=== PATIENT | male | born 1990 | race Caucasian/White ===

== ENCOUNTER 2016-04-29 02:51 | Emergency (ER) | payer SELFPAY ==
[2016-04-29 02:53] VITALS: BP 178/94; PULSE 103; RESP 20; O2SAT 99
--- NOTE | 2016-04-29 04:02 | PD ---
HPI Chief Complaint: Anxiety Time Seen by Provider: 03:59 Travel History International Travel<30 days: No Contact w/Intl Traveler<30days: No Traveled to known affect area: No History of Present Illness HPI Patient comes in requesting something for his anxiety. Patient states he has a history of anxiety secondary to alcohol use. Patient states that he drank a total of 8-16 ounce beers in the last 24 hours as well as taking ecstasy around midnight today and smoking marijuana. Patient did take Benadryl 50 mg prior to coming to the emergency department with no improvement of his symptoms. Patient states this feels similar to previous anxiety attacks and typically happens when he drinks. Denies any chest pain, shortness of breath, abdominal pain, nausea, vomiting, or known trauma. PFSH Past Medical History Anxiety: Yes Depression: Yes Cancer: No Cardiovascular Problems: No Diabetes: No Headaches: No Psychiatric: Yes (See below) Seizures: Yes Past Surgical History Surgical History: No Previous Surgery Social History Alcohol Use: Yes (was alcoholic; sober 1 year) Tobacco Use: No Substance Use: Yes (marijuana) Allergies-Medications (Allergen,Severity, Reaction): Coded Allergies: No Known Allergies (Unverified , 04/29/16) Reported Meds & Prescriptions Reported Meds & Active Scripts Active No Active Prescriptions or Reported Medications Review of Systems Except as stated in HPI: all other systems reviewed are Neg Physical Exam Narrative GENERAL: Well-developed, well nourished, in no acute distress, and non-ill appearing. SKIN: Warm and dry. HEAD: Atraumatic. Normocephalic. EYES: Pupils equal and round. EOMI. No scleral icterus. No injection or drainage. ENT: No nasal bleeding or discharge. Mucous membranes pink and moist. NECK: Trachea midline. Supple. No nuclear rigidity. CARDIOVASCULAR: Regular rate and rhythm. No murmur appreciated. RESPIRATORY: No accessory muscle use. No respiratory distress. Clear to auscultation. Breath sounds equal bilaterally. MUSCULOSKELETAL: No obvious deformities. No clubbing. No cyanosis. No edema. Full range of motion. NEUROLOGICAL: Awake and alert. No obvious cranial nerve deficits. Motor grossly within normal limits. Normal speech. PSYCHIATRIC: Appropriate mood and affect; insight and judgment normal. Data Data Orders Lorazepam Inj (Ativan Inj) (04/29/16 04:15) [facility] Medical Decision Making Medical Screen Exam Complete: Yes Emergency Medical Condition: No Differential Diagnosis Anxiety, panic attack, substance abuse, alcohol intoxication, other Narrative Course Patient in no obvious distress upon re-evaluation. Reports he is feeling better and wanting to go home. Friends/family was at bedside reports that they' re going take him back to detox. Any questions/concerns in reference to patient diagnosis/condition discussed and clarified prior to patient's discharge. Reinforced sheer importance of close follow up with patient's primary physician or primary care clinic and/or [facility]. Instructed patient to return to ED immediately, if symptoms return/worsen. Pt showed understanding of above instructions. Further instructions and recommendations were detailed in discharge paperwork. Pt ambulated without difficulty out of ED at discharge. Diagnosis Primary Impression: Substance-induced anxiety disorder Referrals: [facility] Patient Instructions: Alcohol Use Disorder (ED), General Instructions, Polysubstance Abuse (ED) Additional Instructions: Follow-up with your primary care physician and/or [facility] one to 2 days for reevaluation. Stop drinking and taking drugs. Return to the emergency department if symptoms get worse. Scripts No Active Prescriptions or Reported Meds Disposition: 01 DISCHARGE HOME Condition: Stable Valentín Burns Apr 29, 2016 04:02
[2016-04-29] MEDS ORDERED: LORazepam 2 MG/ML VIAL IM ONE (04:15)
== END 2016-04-29 05:48 | disposition home or self-care (01) ==
LOC: NEPA 02:51
DX: F19.980 Other psychoactive substance use, unspecified with psychoactive substance-induced anxiety disorder (principal)
CPT/HCPCS: 96372; 99283; J2060

== ENCOUNTER 2016-10-11 04:35 | Emergency (ER) | payer SELFPAY ==
[~2016-10-11] VITALS: Ht 175.3 cm; Wt 113.5 kg
[2016-10-11 04:38] VITALS: BP 170/110; PULSE 110; RESP 16; TEMP 98.1; O2SAT 100
[2016-10-11] MEDS ORDERED: LORazepam 2 MG/ML VIAL IV ONE (05:00)
[2016-10-11] MEDS ORDERED: SODIUM CHLOR 0.9% 1000 ML INJ 1,000 ML IV ONE ×2 (05:00)
--- NOTE | 2016-10-11 05:03 | PD ---
HPI Chief Complaint: Medical Clearance Time Seen by Provider: 04:52 Travel History International Travel<30 days: No Contact w/Intl Traveler<30days: No Traveled to known affect area: No History of Present Illness HPI 26-year-old male arrives requesting detox from alcohol. He reports anxiety and drinking about 12-18 large cans of high alcohol content beer daily, as he did today. He would like to quit drinking etoh. He denies HI/SI. He denies drug abuse. Severity moderate. Timing constant.He denies any history of DTs or alcohol withdrawal seizure. PFSH Past Medical History Anxiety: Yes Depression: Yes Cancer: No Cardiovascular Problems: No Diabetes: No Headaches: No Psychiatric: Yes (See below) Seizures: Yes Past Surgical History Surgical History: No Previous Surgery Social History Alcohol Use: Yes (was alcoholic; sober 1 year) Tobacco Use: No Substance Use: Yes (marijuana) Allergies-Medications (Allergen,Severity, Reaction): Coded Allergies: No Known Allergies (Unverified , 04/29/16) Reported Meds & Prescriptions Reported Meds & Active Scripts Active No Active Prescriptions or Reported Medications Review of Systems Except as stated in HPI: all other systems reviewed are Neg Physical Exam Narrative GENERAL: 26 yo M, WNWD, anxious, cooperative, etoh on breath SKIN: Warm and dry. HEAD: Atraumatic. Normocephalic. EYES: Pupils equal and round. No scleral icterus. No injection or drainage. ENT: No nasal bleeding or discharge. Mucous membranes pink and moist. NECK: Trachea midline. No JVD. CARDIOVASCULAR: Regular rhythm. Tachycardia. RESPIRATORY: No accessory muscle use. Clear to auscultation. Breath sounds equal bilaterally. GASTROINTESTINAL: Abdomen soft, non-tender, nondistended. Hepatic and splenic margins not palpable. MUSCULOSKELETAL: Extremities without clubbing, cyanosis, or edema. No obvious deformities. NEUROLOGICAL: Awake and alert. No obvious cranial nerve deficits. Motor grossly within normal limits. Five out of 5 muscle strength in the arms and legs. Normal speech. PSYCHIATRIC: Appropriate mood and affect; insight and judgment normal. Data Data Last Documented VS Vital Signs Date Time Temp Pulse Resp B/P Pulse Ox O2 Delivery O2 Flow Rate FiO2 10/11/16 04:38 98.1 110 16 170/110 100 Room Air VS reviewed Orders Complete Blood Count With Diff (10/11/16 04:55) Comprehensive Metabolic Panel (10/11/16 04:55) Iv Access Insert/Monitor (10/11/16 04:55) Ecg Monitoring (10/11/16 04:55) Psych Screen (10/11/16 04:55) Lorazepam Inj (Ativan Inj) (10/11/16 05:00) Alcohol (Ethanol) (10/11/16 04:55) Salicylates (Aspirin) (10/11/16 04:55) Tylenol (Acetaminophen) (10/11/16 04:55) Sodium Chlor 0.9% 1000 Ml Inj (Ns 1000 M (10/11/16 05:00) Sodium Chlor 0.9% 1000 Ml Inj (Ns 1000 M (10/11/16 05:00) Lorazepam Inj (Ativan Inj) (10/11/16 05:45) Labs Laboratory Tests Test 10/11/16 05:00 White Blood Count 8.5 TH/MM3 Red Blood Count 5.39 MIL/MM3 Hemoglobin 16.5 GM/DL Hematocrit 48.4 % Mean Corpuscular Volume 89.7 FL Mean Corpuscular Hemoglobin 30.6 PG Mean Corpuscular Hemoglobin 34.1 % Concent Red Cell Distribution Width 14.2 % Platelet Count 138 TH/MM3 Mean Platelet Volume 9.0 FL Neutrophils (%) (Auto) 54.2 % Lymphocytes (%) (Auto) 36.8 % Monocytes (%) (Auto) 7.2 % Eosinophils (%) (Auto) 1.6 % Basophils (%) (Auto) 0.2 % Neutrophils # (Auto) 4.6 TH/MM3 Lymphocytes # (Auto) 3.1 TH/MM3 Monocytes # (Auto) 0.6 TH/MM3 Eosinophils # (Auto) 0.1 TH/MM3 Basophils # (Auto) 0.0 TH/MM3 CBC Comment DIFF FINAL Differential Comment Sodium Level 140 MEQ/L Potassium Level 3.6 MEQ/L Chloride Level 104 MEQ/L Carbon Dioxide Level 27.6 MEQ/L Anion Gap 8 MEQ/L Blood Urea Nitrogen 8 MG/DL Creatinine 0.80 MG/DL Estimat Glomerular Filtration 118 ML/MIN Rate Random Glucose 94 MG/DL Calcium Level 8.8 MG/DL Total Bilirubin 0.4 MG/DL Aspartate Amino Transf 39 U/L (AST/SGOT) Alanine Aminotransferase 53 U/L (ALT/SGPT) Alkaline Phosphatase 75 U/L Total Protein 8.0 GM/DL Albumin 3.9 GM/DL Salicylates Level LESS THAN 1.7 MG/DL Acetaminophen Level LESS THAN 2.0 MCG/ML Ethyl Alcohol Level 87 MG/DL MDM Medical Decision Making Medical Screen Exam Complete: Yes Emergency Medical Condition: Yes Medical Record Reviewed: Yes Differential Diagnosis Alcoholism, alcohol withdrawal, delirium tremens, electron imbalance, anemia, polysubstance abuse Narrative Course CBC & BMP Diagram 10/11/16 05:00 LFTs normal EtOH 87 APAP < 2.0 Salicylates < 1.7 2L NS 2mg IV ativan. Reassessment at 615AM HR decreased to approximately 95- 105. No tremor. Reports feeling much better. [facility] follow up instructions provided at bedside. Diagnosis Primary Impression: Alcoholism Referrals: [facility] 2 days Additional Instructions: You have a choice when it comes to health care, and we are glad that you chose [facility]. Hopefully, we have met your expectations on today's visit. You are welcome to return to [facility] at any time, as we are committed to meeting the health care needs of our community. Med/Other Pt SpecificInfo: No Change to Meds Scripts No Active Prescriptions or Reported Meds Disposition: DISCHARGE HOME Condition: Dimitris Robins MD Oct 11, 2016 05:03 Additional Instructions: You have a choice when it comes to health care, and we are glad that you chose [facility]. Hopefully, we have met your expectations on today's visit. You are welcome to return to [facility] at any time, as we are committed to meeting the health care needs of our community. Med/Other Pt SpecificInfo: No Change to Meds Scripts No Active Prescriptions or Reported Meds Disposition: DISCHARGE HOME Condition: Dimitris Robins MD Oct 11, 2016 05:03
[2016-10-11 05:14] LABS: AUTOMATED NEUTROPHIL # 4.6 TH/MM3 (1.8-7.7); BASOPHIL % 0.2 % (0.0-2.0); EOSINOPHIL # 0.1 TH/MM3 (0-0.4); EOSINOPHIL % 1.6 % (0.0-4.0); HEMATOCRIT 48.4 % (39.0-51.0); HEMO FLAGS DIFF FINAL; LYMPH % 36.8 % (9.0-44.0); LYMPHOCYTE # 3.1 TH/MM3 (1.0-4.8); MEAN CELL VOLUME 89.7 FL (80.0-100.0); MEAN CORPUSCULAR HEMOGLOBIN 30.6 PG (27.0-34.0); MEAN CORPUSCULAR HGB CONC 34.1 % (32.0-36.0); MONO % 7.2 % (0.0-8.0); NEUT % 54.2 % (16.0-70.0); PLATELET COUNT 138 TH/MM3 (150-450); RED BLOOD COUNT 5.39 MIL/MM3 (4.50-5.90); RED CELL DISTRIBUTION WIDTH 14.2 % (11.6-17.2); WHITE BLOOD COUNT 8.5 TH/MM3 (4.0-11.0)
[2016-10-11 05:43] LABS: ANION GAP 8 MEQ/L (5-15)
[2016-10-11] MEDS ORDERED: LORazepam 2 MG/ML VIAL IV PUSH ONE (05:45)
[2016-10-11 05:48] LABS: ALKALINE PHOSPHATASE 75 U/L (45-117); ALT (GPT) 53 U/L (12-78); AST (GOT) 39 U/L (15-37); BICARBONATE 27.6 MEQ/L (21.0-32.0); BLOOD UREA NITROGEN 8 MG/DL (7-18); CHLORIDE 104 MEQ/L (98-107); GLOMERULAR FILTRATION RATE 118 ML/MIN (>89); POTASSIUM 3.6 MEQ/L (3.5-5.1); SODIUM (NA) 140 MEQ/L (136-145); TOTAL BILIRUBIN ADULT 0.4 MG/DL (0.2-1.0)
[2016-10-11 05:50] LABS: ACETAMINOPHEN LESS THAN 2.0 MCG/ML (10.0-30.0)
== END 2016-10-11 06:42 | disposition home or self-care (01) ==
LOC: NEPC 04:35
DX: F10.20 Alcohol dependence, uncomplicated (principal)
CPT/HCPCS: 80053; 80307; 85025; 96361; 96374; 96376; 99284; J2060; J7030

== ENCOUNTER 2016-12-15 02:40 | Emergency (ER) | payer SELFPAY ==
[~2016-12-15] VITALS: Ht 175.3 cm; Wt 115.0 kg
[2016-12-15 02:42] VITALS: BP 146/91; PULSE 92; RESP 22; TEMP 98; O2SAT 100
--- NOTE | 2016-12-15 02:50 | PD ---
HPI Chief Complaint: Anxiety Time Seen by Provider: 02:50 Travel History International Travel<30 days: No Contact w/Intl Traveler<30days: No Traveled to known affect area: No History of Present Illness HPI 26-year-old male came to the emergency room with history of anxiety. Patient says he does have history of anxiety and panic attacks. He was sleeping today when he woke up and recognized his panic attack and came to the emergency room. He says he has been making some poor lifestyle choices including drinking a lot of alcohol. He says he drinks about 6-7 cans of 16 ounce beer each 8% alcohol daily and has been drinking it for 4-5 months. However he did not drink any alcohol in past 2 days. Vital signs are stable. He is awake and alert and answering questions appropriately. He looks visibly anxious. Patient denies any history of suicidal ideations or auditory hallucinations. [facility] Past Medical History Narrative Medical List of his past medical, surgical, social and family history is reviewed from the nursing note. Anxiety: Yes Depression: Yes Cancer: No Cardiovascular Problems: No Diabetes: No Headaches: No Psychiatric: Yes (See below) Seizures: Yes Past Surgical History Surgical History: No Previous Surgery Social History Alcohol Use: Yes (6-8 [employer] DAY) Tobacco Use: Yes (6-7 CIG PER DAY) Substance Use: Yes (marijuana) Allergies-Medications (Allergen,Severity, Reaction): Coded Allergies: No Known Allergies (Unverified , 12/15/16) Comments No known drug allergies. Reported Meds & Prescriptions Reported Meds & Active Scripts Active No Active Prescriptions or Reported Medications Narrative Medication List of his home medications reviewed from the nursing note. Review of Systems Except as stated in HPI: all other systems reviewed are Neg Physical Exam Narrative GENERAL: Awake, alert, anxious, no obvious distress SKIN: Focused skin assessment warm/dry. HEAD: Atraumatic. Normocephalic. EYES: Pupils equal and round. No scleral icterus. No injection or drainage. ENT: No nasal bleeding or discharge. Mucous membranes pink and moist. NECK: Trachea midline. No JVD. CARDIOVASCULAR: Regular rate and rhythm. No murmur appreciated. RESPIRATORY: No accessory muscle use. Clear to auscultation. Breath sounds equal bilaterally. GASTROINTESTINAL: Abdomen soft, non-tender, nondistended. Hepatic and splenic margins not palpable. MUSCULOSKELETAL: No obvious deformities. No clubbing. No cyanosis. No edema. NEUROLOGICAL: Awake and alert. No obvious cranial nerve deficits. Motor grossly within normal limits. Normal speech. PSYCHIATRIC: Appropriate mood and affect; insight and judgment normal. Data Data Last Documented VS Orders Orders Complete Blood Count With Diff (12/15/16 03:01) Comprehensive Metabolic Panel (12/15/16 03:01) Drug Screen, Random Urine (12/15/16 03:01) Alcohol (Ethanol) (12/15/16 03:01) Chlordiazepoxide (Librium) (12/15/16 03:15) Agronomy Specialist / Telemetry [id number].[id number] (12/15/16 03:01) Lorazepam (Ativan) (12/15/16 05:00) Labs Laboratory Tests Test 12/15/16 03:11 12/15/16 03:57 White Blood Count 9.5 TH/MM3 Red Blood Count 5.29 MIL/MM3 Hemoglobin 17.0 GM/DL Hematocrit 48.1 % Mean Corpuscular Volume 91.0 FL Mean Corpuscular Hemoglobin 32.2 PG Mean Corpuscular Hemoglobin Concent 35.4 % Red Cell Distribution Width 13.4 % Platelet Count 149 TH/MM3 Mean Platelet Volume 10.0 FL Neutrophils (%) (Auto) 56.7 % Lymphocytes (%) (Auto) 34.0 % Monocytes (%) (Auto) 6.1 % Eosinophils (%) (Auto) 2.9 % Basophils (%) (Auto) 0.3 % Neutrophils # (Auto) 5.4 TH/MM3 Lymphocytes # (Auto) 3.2 TH/MM3 Monocytes # (Auto) 0.6 TH/MM3 Eosinophils # (Auto) 0.3 TH/MM3 Basophils # (Auto) 0.0 TH/MM3 CBC Comment DIFF FINAL Differential Comment Blood Urea Nitrogen 15 MG/DL Creatinine 0.91 MG/DL Random Glucose 113 MG/DL Total Protein 7.6 GM/DL Albumin 3.9 GM/DL Calcium Level 9.1 MG/DL Alkaline Phosphatase 65 U/L Aspartate Amino Transf (AST/SGOT) 38 U/L Alanine Aminotransferase (ALT/SGPT) 61 U/L Total Bilirubin 1.2 MG/DL Sodium Level 138 MEQ/L Potassium Level 3.8 MEQ/L Chloride Level 104 MEQ/L Carbon Dioxide Level 23.7 MEQ/L Anion Gap 10 MEQ/L Estimat Glomerular Filtration Rate 102 ML/MIN Ethyl Alcohol Level LESS THAN 3 MG/DL Urine Opiates Screen NEG Urine Barbiturates Screen NEG Urine Amphetamines Screen NEG Urine Benzodiazepines Screen NEG Urine Cocaine Screen NEG Urine Cannabinoids Screen POS MDM Medical Decision Making Medical Screen Exam Complete: Yes Emergency Medical Condition: Yes Medical Record Reviewed: Yes Differential Diagnosis Panic attack, generalized anxiety disorder, alcohol withdrawal Narrative Course 4:54 AM blood test results of back and within acceptable limits. Urine drug screen is positive for marijuana. Alcohol level is 0. Patient was given Librium in an attempt to control alcohol withdrawal. He continues to look anxious and I have given him a dose of Ativan by mouth. I'll discharge him home at this point. I've asked him to follow-up at [facility] for possible alcohol rehabilitation. Patient agrees with the idea. Procedures EKG Prior to Arrival: No Diagnosis Primary Impression: Chronic alcoholism Additional Impressions: Generalized anxiety disorder Marijuana abuse Referrals: Primary Care Physician Additional Instructions: Please follow-up at [facility] for alcohol detox/rehabilitation. Return to the ER if the condition worsens or any other new concerns. Follow-up with your primary care. Med/Other Pt SpecificInfo: No Change to Meds Scripts No Active Prescriptions or Reported Meds Disposition: DISCHARGE HOME Condition: Stable Ayush Dodson MD Dec 15, 2016 02:50
[2016-12-15 03:29] LABS: AUTOMATED NEUTROPHIL # 5.4 TH/MM3 (1.8-7.7); BASOPHIL % 0.3 % (0.0-2.0); EOSINOPHIL # 0.3 TH/MM3 (0-0.4); EOSINOPHIL % 2.9 % (0.0-4.0); HEMATOCRIT 48.1 % (39.0-51.0); HEMO FLAGS DIFF FINAL; LYMPHOCYTE # 3.2 TH/MM3 (1.0-4.8); MEAN CORPUSCULAR HEMOGLOBIN 32.2 PG (27.0-34.0); MEAN CORPUSCULAR HGB CONC 35.4 % (32.0-36.0); MONO % 6.1 % (0.0-8.0); NEUT % 56.7 % (16.0-70.0); PLATELET COUNT 149 TH/MM3 (150-450); RED BLOOD COUNT 5.29 MIL/MM3 (4.50-5.90); RED CELL DISTRIBUTION WIDTH 13.4 % (11.6-17.2); WHITE BLOOD COUNT 9.5 TH/MM3 (4.0-11.0)
[2016-12-15 03:38] LABS: ALCOHOL LESS THAN 3 MG/DL (0-5); ALT (GPT) 61 U/L (12-78); ANION GAP 10 MEQ/L (5-15); AST (GOT) 38 U/L (15-37); BICARBONATE 23.7 MEQ/L (21.0-32.0); BLOOD UREA NITROGEN 15 MG/DL (7-18); CHLORIDE 104 MEQ/L (98-107); GLOMERULAR FILTRATION RATE 102 ML/MIN (>89); POTASSIUM 3.8 MEQ/L (3.5-5.1); SODIUM (NA) 138 MEQ/L (136-145)
[2016-12-15 03:40] LABS: ALKALINE PHOSPHATASE 65 U/L (45-117); TOTAL BILIRUBIN ADULT 1.2 MG/DL (0.2-1.0)
[2016-12-15] MEDS ORDERED: LORazepam 1 MG TAB PO ONE (05:00)
[2016-12-15 05:43] VITALS: BP 138/78; PULSE 87; RESP 18; O2SAT 100
== END 2016-12-15 05:44 | disposition home or self-care (01) ==
LOC: NEPE 02:40
DX: F10.20 Alcohol dependence, uncomplicated (principal); F41.1 Generalized anxiety disorder; F12.10 Cannabis abuse, uncomplicated; Z72.0 Tobacco use; Z86.59 Personal history of other mental and behavioral disorders; Z86.69 Personal history of other diseases of the nervous system and sense organs
CPT/HCPCS: 80053; 80307; 85025; 99283